=== PATIENT | male | born 1990 | race Caucasian/White ===

== ENCOUNTER 2016-08-30 22:00 | Emergency (ER) | payer SELFPAY ==
[2016-08-31] MEDS ORDERED: Acetaminophen TAB* 325 MG PO ONE (00:05)
--- NOTE | 2016-08-31 00:29 | ED ---
Influenza-Like Illness - HPI Summary HPI Summary: Patient presents with 3 days of congestion, cough and sore throat. Four hours ago he feels like he started feeling worse with subjective fever and chills. He denies SOB, CP, neck stiffness, N/V/ or BELTRÁN. He is eating and drinking. He has had one episode of diarrhea. He says he has been "working a lot" and one of his friends has pharyngitis. He does not have a regular doctor. - History of Current Complaint Chief Complaint: EDFluSymptoms Time Seen by Provider: 08/30/16 23:55 Hx Obtained From: Patient Onset/Duration: Gradual Onset Severity: Moderate Associated Signs & Symptoms: Cough, Sore Throat, Nasal Congestion, Diarrhea Related Hx: Possible Flu/Infectious Exposure - Allergy/Home Medications Allergies/Adverse Reactions: Allergies Allergy/AdvReac Type Severity Reaction Status Date / Time No Known Allergies Allergy Verified 11/21/15 11:28 PMH/Surg Hx/FS Hx/Imm Hx Respiratory History: Reports: Other Respiratory Problems/Disorders - SLEEP APNEA Musculoskeletal History: Reports: Hx Tendonitis Infectious Disease History: No Infectious Disease History: Denies: Traveled Outside the [place] in Last 30 Days - Family History Known Family History: Positive: None - Social History Occupation: Employed Full-time Lives: With Family Alcohol Use: Rare Substance Use Type: Reports: Marijuana Substance Use Comment - Amount & Last Used: weekly Hx Tobacco Use: Yes Smoking Status (MU): Light Every Day Tobacco Smoker Cessation Counseling: Patient Advised to Stop Review of Systems Positive: Chills, Fatigue. Negative: Fever Negative: Photophobia Positive: Sore Throat, Nasal Discharge. Negative: Ear Ache Negative: Chest Pain Positive: Cough. Negative: Shortness Of Breath Positive: Diarrhea - x 1. Negative: Abdominal Pain, Vomiting, Nausea Positive: no symptoms reported Negative: Myalgia Negative: Headache All Other Systems Reviewed And Are Negative: Yes Physical Exam Triage Information Reviewed: Yes Vital Signs On Initial Exam: Initial Vitals Temp Pulse Resp BP Pulse Ox 99.3 F 82 18 144/58 98 08/30/16 22:19 08/30/16 22:19 08/30/16 22:19 08/30/16 22:19 08/30/16 22:19 Vital Signs Reviewed: Yes Appearance: Positive: Well-Appearing, No Pain Distress, Obese Skin: Positive: Warm, Skin Color Reflects Adequate Perfusion, Dry, Soft Head/Face: Positive: Normal Head/Face Inspection Eyes: Positive: EOMI, KARY, Conjunctiva Clear ENT: Positive: Hearing grossly normal, Pharyngeal erythema, Nasal congestion, TMs normal. Negative: Tonsillar swelling, Tonsillar exudate, Trismus, Muffled/ hoarse voice Neck: Positive: Supple, Nontender, No Lymphadenopathy Respiratory/Lung Sounds: Positive: Clear to Auscultation, Breath Sounds Present Cardiovascular: Positive: RRR Abdomen Description: Positive: Nontender, Soft Musculoskeletal: Negative: Edema Left, Edema Right Neurological: Positive: Sensory/Motor Intact, Alert, Oriented to Person Place, Time, NV Bundle Intact Distally, Normal Gait Psychiatric: Positive: Affect/Mood Appropriate AVPU Assessment: Alert Diagnostics - Vital Signs Vital Signs Temp Pulse Resp BP Pulse Ox 08/30/16 22:19 99.3 F 82 18 144/58 98 - Laboratory Lab Results: Lab Results 08/30/16 08/30/16 Range/Units 22:19 23:17 Influenza A (Rapid) Negative (Negative) Influenza B (Rapid) Negative (Negative) Group A Strep Rapid Negative (Negative) Lab Statement: Any lab studies that have been ordered have been reviewed, and results considered in the medical decision making process. - Radiology No standard instances Xray Interpretation: No Acute Changes Radiology Interpretation Completed By: Radiologist Flu Symptom Course/Dx - Diagnoses Differential Diagnosis/HQI/PQRI: Positive: Bronchitis, Influenza, Pneumonia, Upper Respiratory Infection Provider Diagnoses: Pharyngitis Discharge - Discharge Plan Condition: Stable Disposition: HOME Patient Education Materials: Pharyngitis (ED) Referrals: No Primary Care Phys,NOPCP [Primary Care Provider] - [facility] [place] [facility] [Outside] Additional Instructions: Please use over the counter medication, such as ibuprofen, Tylenol, Cephaclor throat spray and cough drops, to help reduce your symptoms. Perform warm saltwater gargles as well. Call the number provided to establish care with a regular provider for follow-up care. Return to the emergency department if symptoms worsen.
[2016-08-31 00:45] VITALS: BP 141/65
--- NOTE | 2016-08-31 08:07 | RAD ---
Indication: Shortness of breath, cough and fatigue. 2 views the chest including dual energy PA views demonstrates hyperinflated lung salguero. No pleural fluid, pneumonia or pneumothorax is noted. IMPRESSION: HYPERINFLATED LUNG SALGUERO WITHOUT EVIDENCE OF ACTIVE CARDIOPULMONARY DISEASE.
== END 2016-08-31 00:42 | disposition home or self-care (01) ==
LOC: ED 22:00
DX: J02.9 Acute pharyngitis, unspecified (principal); R09.81 Nasal congestion; R68.83 Chills (without fever); R05 Cough; R19.7 Diarrhea, unspecified; F17.210 Nicotine dependence, cigarettes, uncomplicated
CPT/HCPCS: 71020; 87502; 87651; 99282; A9270-GY

== ENCOUNTER 2016-10-29 14:17 | Emergency (ER) | payer SELFPAY ==
[2016-10-29] MEDS ORDERED: Cyclobenzaprine TAB* 10 MG PO ONE (15:21)
[2016-10-29] MEDS ORDERED: Ketorolac INJ* 60 MG/2 ML VIAL IM ONE (15:21)
--- NOTE | 2016-10-29 15:22 | ED ---
Upper Extremity Pain - HPI Summary HPI Summary: 26 male presents with complaints of left shoulder/scapula pain that radiates under left arm and up into left pectoris muscle that has been going on for the past 2-4 days. Patient states he had similar pain on the right side a few days ago but today when he woke up it moved to the left side. Denies recent trauma or injury, however does states about 1 week ago he fell while at work and landed on his right side, all twisted and "Fell wrong". Patient states he was just at work before coming to ED and was lifting and stretching which was causing his pain to hurt more. Has not taken any medications for this pain. Denies difficulty breathing or shortness of breath. Denies chest pain, numbness/ tingling and vomiting. Has been eating and drinking without issue. Admits to some nausea however. Also states sometimes when he takes a deep breath it worsens the pain. Describes pain as sharp, intermittently with stretching. No PMHx. Denies fever/chills. Admits to stuffy nose and intermittent non productive cough. - History of Current Complaint Chief Complaint: EDChestWallPain Stated Complaint: BACK/SHOULDER PAIN Time Seen by Provider: 10/29/16 14:36 Hx Obtained From: Patient Mechanism Of Injury: Fall From A Standing Position - 1 week ago, Unknown Onset/Duration: Started Hours Ago, Still Present Timing: Intermittent - with certain movements Severity Initially: Moderate Severity Currently: Moderate Pain Location: Shoulder - left back/shoulder and pectoris musle, front chest Character: Sharp, Aching Aggravating Factor(s): Movement - stretching Alleviating Factor(s): Rest Associated Signs & Symptoms: Positive: Negative, Swelling - subjective, right chest swelling, Back Pain, Nausea. Negative: Redness, Bruising, Weakness, Numbness/Tingling, Chest Pain, SOB, Vomiting Related History: Dominant Hand Right - Allergies/Home Medications Allergies/Adverse Reactions: Allergies Allergy/AdvReac Type Severity Reaction Status Date / Time No Known Allergies Allergy Verified 11/21/15 11:28 PMH/Surg Hx/FS Hx/Imm Hx Endocrine/Hematology History: Denies: Hx Diabetes Cardiovascular History: Denies: Hx Hypertension Respiratory History: Reports: Other Respiratory Problems/Disorders - SLEEP APNEA Denies: Hx Asthma Musculoskeletal History: Reports: Hx Tendonitis - Surgical History Surgery Procedure, Year, and Place: none - Immunization History Immunizations Up to Date: Yes Infectious Disease History: No Infectious Disease History: Denies: Traveled Outside the [place] in Last 30 Days - Family History Known Family History: Positive: None - Social History Alcohol Use: Rare Substance Use Type: Reports: Marijuana Substance Use Comment - Amount & Last Used: weekly Hx Tobacco Use: Yes Smoking Status (MU): Light Every Day Tobacco Smoker Review of Systems Constitutional: Negative Cardiovascular: Negative Respiratory: Negative Positive: Nausea Genitourinary: Negative Positive: Arthralgia, Myalgia - left shoulder/chest Skin: Negative Neurological: Negative All Other Systems Reviewed And Are Negative: Yes Physical Exam Triage Information Reviewed: Yes Vital Signs On Initial Exam: Initial Vitals Temp Pulse Resp BP Pulse Ox 97.8 F 66 20 133/63 99 10/29/16 14:19 10/29/16 14:19 10/29/16 14:19 10/29/16 14:19 10/29/16 14:19 Vital Signs Reviewed: Yes Appearance: Positive: Well-Appearing - sleeping upon entry into room, No Pain Distress, Well-Nourished, Obese Skin: Positive: Warm, Skin Color Reflects Adequate Perfusion, Dry, Other - no crepitus, step off or ecchymosis. no edema noted anywhere. no obvious deformity. no reproducible tenderness. Negative: Cold, Cyanosis @ Head/Face: Positive: Normal Head/Face Inspection Eyes: Positive: Normal, Conjunctiva Clear ENT: Positive: Normal ENT inspection, Hearing grossly normal Neck: Positive: Supple, Nontender, No Lymphadenopathy Respiratory/Lung Sounds: Positive: Clear to Auscultation, Breath Sounds Present. Negative: Rales, Rhonchi, Stridor, Wheezes Cardiovascular: Positive: Normal, RRR, Pulses are Symmetrical in both Upper and Lower Extremities - 2+ all. Negative: Murmur, Rub Abdomen Description: Positive: Nontender, No Organomegaly, Soft. Negative: Bruit, CVA Tenderness (R), CVA Tenderness (L), Distended, Guarding, Pulsatile Mass Bowel Sounds: Positive: Present Musculoskeletal: Positive: Normal, Strength/ROM Intact, Pain @ - mild tenderness left lateral thoracic paraspinal mucles and along left scapula. no reproducible sharp pain. Negative: Limited @, Interruption @, Edema Left, Edema Right Neurological: Positive: Normal, Sensory/Motor Intact - sensation intact and normal, Alert, Oriented to Person Place, Time, CN Intact II-III, Reflexes Intact , NV Bundle Intact Distally, Normal Gait Psychiatric: Positive: Normal Diagnostics - Vital Signs Vital Signs Temp Pulse Resp BP Pulse Ox 10/29/16 14:23 97.7 F 69 17 133/63 99 10/29/16 14:19 97.8 F 66 20 133/63 99 - Laboratory Lab Statement: Any lab studies that have been ordered have been reviewed, and results considered in the medical decision making process. Re-Evaluation - Re-Evaluation First Eval Re-Evaluation Time: 16:20 Change: Improved Comment: patient had significant relief of symptoms after medication was administered. states he feels better and would like to go home. Course/Dx - Course Course Of Treatment: no x-rays obtained due to patient not having any significant trauma or injury and no concern for fracture or disclocation at this time due to GEE and PE findings. No cardiac related chest pain or respiratory complaints. Normal vitals. Appears to be muscular due to PE findings and HPI. Given toradol and muscle relaxer while in ED. Had relief. Patient was encouraged to continue ibuprofen or aleve while at home along with rest, head and ice. Follow up with pcp. Educated on worsening signs and symptoms to watch out for. No concern for any emergent etiology at this time. - Diagnoses Differential Diagnosis/HQI/PQRI: Positive: Arthritis, Contusion, Strain, Sprain Provider Diagnoses: Muscle strain of left scapular region Discharge - Discharge Plan Condition: Stable Disposition: HOME Patient Education Materials: Muscle Strain (ED) Forms: *Work Release Referrals: No Primary Care Phys,NOPCP [Primary Care Provider] - [facility] [place] [facility] [Outside] Additional Instructions: Take Ibuprofen(Motrin) daily for the next 3-5 days or until symptoms persist. Take with food. You may take up to 600mg every 6 hours. Rest and apply heat to the area causing pain. Avoid lifting and movements that cause the pain to worsen. Follow up with PCP. If symptoms worsen or new symptoms develop please return.
[2016-10-29 16:38] VITALS: BP 131/68
== END 2016-10-29 16:37 | disposition home or self-care (01) ==
LOC: ED 14:17
DX: R11.0 Nausea (principal); R07.9 Chest pain, unspecified; F17.210 Nicotine dependence, cigarettes, uncomplicated; S09.11XA Strain of muscle and tendon of head, initial encounter; X50.9XXA Other and unspecified overexertion or strenuous movements or postures, initial encounter; Y93.9 Activity, unspecified; Y92.9 Unspecified place or not applicable; Y99.9 Unspecified external cause status
CPT/HCPCS: 96372; 99282; A9270-GY; J1885

== ENCOUNTER 2017-04-11 14:40 | Emergency (ER) | payer SELFPAY ==
--- NOTE | 2017-04-11 17:21 | RAD ---
Indication: LEFT shoulder pain; injury; felt tearing. Comparison: August 31, 2016 chest radiograph. Technique: Internal rotation AP, external rotation Grashey, scapular Y, axillary views LEFT shoulder Report: Normal acromioclavicular and glenohumeral joint alignment. Negative for fracture. No significant arthropathic change evident. Negative for stigmata of calcific tendinopathy. Unremarkable soft tissue contours. IMPRESSION: No traumatic injury evident. Negative exam.
[2017-04-11] MEDS ORDERED: Ibuprofen TAB* 400 MG PO ONE (17:26)
--- NOTE | 2017-04-11 18:50 | ED ---
Upper Extremity Pain - HPI Summary HPI Summary: Pt here w/ Rt shoulder pain x 2 days. Injured while sparring with a friend last night. Arm was aggressively blocked as he tried to jab - pushed upward and outward. Maxwell like internal tearing and had pain and swelling after. Tried tylenol w/ some relief but arm hurts to support on his own - worse w/ flexion/ abduction. Denies numbness, tingling, weakness. No other injuries as a result of this incident. - History of Current Complaint Chief Complaint: EDShoulderClavicleInj Stated Complaint: LT SHOULDER INJURY Time Seen by Provider: 04/11/17 17:38 Hx Obtained From: Patient - Allergies/Home Medications Allergies/Adverse Reactions: Allergies Allergy/AdvReac Type Severity Reaction Status Date / Time No Known Allergies Allergy Verified 11/21/15 11:28 PMH/Surg Hx/FS Hx/Imm Hx Previously Healthy: Yes Endocrine/Hematology History: Denies: Hx Diabetes Cardiovascular History: Denies: Hx Hypertension Respiratory History: Reports: Other Respiratory Problems/Disorders - SLEEP APNEA Denies: Hx Asthma Musculoskeletal History: Reports: Hx Tendonitis - Rt knee - uses marijuana to treat pain - Surgical History Surgery Procedure, Year, and Place: none Infectious Disease History: No Infectious Disease History: Denies: Traveled Outside the [place] in Last 30 Days - Family History Known Family History: Positive: None - Social History Occupation: Employed Full-time Lives: With Family Alcohol Use: Rare Substance Use Type: Reports: Marijuana - uses to treat tendonitis pain Substance Use Comment - Amount & Last Used: weekly Hx Tobacco Use: Yes Smoking Status (MU): Current Every Day Smoker Amount Used/How Often: 1PPD Review of Systems Constitutional: Negative Eyes: Negative Negative: Photophobia, Blurred Vision, Diplopia Cardiovascular: Negative Negative: Chest Pain Respiratory: Negative Negative: Shortness Of Breath Gastrointestinal: Negative Negative: Abdominal Pain, Vomiting, Diarrhea, Nausea Positive: no symptoms reported Positive: Arthralgia, Myalgia, Decreased ROM Skin: Negative Neurological: Negative Psychological: Normal All Other Systems Reviewed And Are Negative: Yes Physical Exam Triage Information Reviewed: Yes Vital Signs On Initial Exam: Initial Vitals Temp Pulse Resp BP Pulse Ox 98.8 F 52 17 148/77 98 04/11/17 15:02 04/11/17 15:02 04/11/17 15:02 04/11/17 15:02 04/11/17 15:02 Vital Signs Reviewed: Yes Appearance: Positive: Well-Appearing, No Pain Distress - at rest, Well-Nourished Skin: Positive: Warm, Dry - no erythema, no ecchymosis over affected area but soft tissue of scapula is edematous compared to Rt - pt reports it feels "squishy" w/ palpation Head/Face: Positive: Normal Head/Face Inspection Eyes: Positive: EOMI Neck: Positive: Supple, Nontender Respiratory/Lung Sounds: Positive: Breath Sounds Present Cardiovascular: Positive: Pulses are Symmetrical in both Upper and Lower Extremities - no edema of UE Musculoskeletal: Positive: Limited @ - Lt shoulder pain and limited ROM w/ flexion and abduction at around 90 degrees - can move elbow, wrist and phalalnges well; pain Lt shoulder better in sling and with passive ROM Neurological: Positive: Normal, Sensory/Motor Intact, Alert, Oriented to Person Place, Time, CN Intact II-III Psychiatric: Positive: Normal - Anthony Coma Scale Coma Scale Total: 15 Diagnostics - Vital Signs Vital Signs Temp Pulse Resp BP Pulse Ox 04/11/17 15:02 98.8 F 52 17 148/77 98 - Laboratory Diagnostic Studies Comment: Lt shoulder XR report reviewed - no fx, no dislocation Lab Statement: Any lab studies that have been ordered have been reviewed, and results considered in the medical decision making process. Course/Dx - Course Course Of Treatment: Suspect rotator cuff injury. Advised RICE and sling - NSAID 's - f/u w/ ortho. Danger s/sx reviewed as well. Pt agrees w/ plan. - Diagnoses Provider Diagnoses: Left anterior shoulder pain Discharge - Discharge Plan Condition: Stable Disposition: HOME Patient Education Materials: Shoulder Pain (ED) Referrals: Wolfgang Gil MD [Medical Doctor] - Additional Instructions: It is suspected that you have a rotator cuff injury. Continue to use sling but do remove arm a few times a day to move elbow and gentle move shoulder to prevent stiffness, swelling You may ice and take ibuprofen with food Follow-up with orthopedics in 1-2 weeks if shoulder pain persists - call tomorrow to schedule an appointment *If you develop numbness, weakness, swelling, coolness of extremity, return to ED
[2017-04-11 19:19] VITALS: BP 130/67
== END 2017-04-11 19:17 | disposition home or self-care (01) ==
LOC: ED 14:40
DX: M25.512 Pain in left shoulder (principal)
CPT/HCPCS: 99282; A9270-GY

== ENCOUNTER 2021-06-17 22:58 | Inpatient (IN) ==
[2021-06-17 23:57] LABS: ABS Basophils 0.1 10^3/ul (0-0.2); ABS Eosinophils 0.3 10^3/ul (0-0.6); ABS Lymphocytes 2.6 10^3/ul (1.0-4.8); ABS Neutrophils 6.9 10^3/ul (1.5-7.7); Eosinophil % 3.1 %; Hematocrit 44 % (42-52); Hemoglobin 14.9 g/dL (14.0-18.0); Lymphocyte % 23.5 %; Mean Corpuscular HGB Conc 34 g/dL (31-36); Mean Corpuscular Hemoglobin 30 pg (27-31); Mean Corpuscular Volume 87 fL (80-94); Nucleated Red Blood Cells % 0.1; Platelet Count 245 10^3/uL (150-450); Red Blood Count 5.03 10^6 /uL (4.18-5.48); Red Cell Distribution Width 14 % (10-15); White Blood Count 10.9 10^3/uL (3.5-10.8)
[2021-06-18 00:12] LABS: ALT 17 U/L (7-52); AST 21 U/L (13-39); Albumin 4.5 g/dL (3.2-5.2); Albumin/Globulin Ratio 1.6 (1-3); Alkaline Phosphatase 78 U/L (35-149); Anion Gap 9 mmol/L (2-11); Blood Urea Nitrogen 11 mg/dL (6-24); CO2 Carbon Dioxide 23 mmol/L (22-32); Calcium 9.2 mg/dL (8.6-10.3); Chloride 104 mmol/L (101-111); Globulin 2.9 g/dL (2-4); Glucose 93 mg/dL (70-100); Potassium 3.8 mmol/L (3.5-5.0); Sodium 136 mmol/L (135-145); Total Protein 7.4 g/dL (6.4-8.9); eGFR CKD-EPI 119.4 (>60)
[2021-06-18 00:27] LABS: Acetaminophen < 15 mcg/mL; Alcohol, S < 13 mg/dL (<13); Salicylate < 2.50 mg/dL (<30)
[2021-06-18 00:42] LABS: TSH Ultra Thyroid Stim Horm 4.27 mcIU/mL (0.34-5.60)
[2021-06-18 01:32] LABS: Urine Benzodiazepine Screen None Detected (None Detect); Urine Cannabinoids Screen Presumptive Positive (None Detect); Urine Opiates Screen None Detected (None Detect)
[2021-06-18 02:06] LABS: Urine Appearance Clear; Urine Bilirubin Negative (Negative); Urine Blood Negative (Negative); Urine Color Yellow; Urine Glucose Negative (Negative); Urine Ketones Negative (Negative); Urine Nitrite Negative (Negative); Urine Protein Negative (Negative); Urine Urobilinogen Negative (Negative); Urine pH 5 (5-9)
[2021-06-18] MEDS: Nicotine PATCH 21 MG/24 HR PATCH TRANSDERM ONE (09:43)
[2021-06-18] MEDS ORDERED: Lorazepam PYXIS KEY PRN (13:52)
[2021-06-18] MEDS ORDERED: LORazepam 2 mg VIAL 1 ml IM ONE (13:52)
[2021-06-18] MEDS ORDERED: diPHENhydraMINE IV 50 MG/ML 1 ml VIAL (BENADRYL) IV ONE (13:52)
[2021-06-18] MEDS ORDERED: diPHENhydraMINE IV 50 MG/ML 1 ml VIAL (BENADRYL) IM ONE (13:52)
[2021-06-18] MEDS ORDERED: Haloperidol 5 mg/ml SDV IV/IM 5 MG/ML AMP IM ONE (13:53)
[2021-06-18] MEDS ORDERED: Al Hydrox/Mg Hydrox/Simet LIQ 30 ML UDC PO PRN (14:15)
[2021-06-18] MEDS: Nicotine GUM 4MG FRUIT FLAVOR PO PRN (14:29)
[2021-06-19] MEDS ORDERED: Nicotine PATCH 21 MG/24 HR PATCH ONE (12:28)
[2021-06-19] MEDS: Nicotine GUM 4MG FRUIT FLAVOR PO PRN ×3 (12:37→20:59)
[2021-06-19] MEDS: Nicotine PATCH 21 MG/24 HR PATCH TRANSDERM ONE (12:38)
[2021-06-19] MEDS: Nicotine PATCH 21 MG/24 HR PATCH TRANSDERM SCH (12:44)
[2021-06-20] MEDS: Nicotine GUM 4MG FRUIT FLAVOR PO PRN ×4 (09:53→22:33)
[2021-06-20] MEDS: Nicotine PATCH 21 MG/24 HR PATCH TRANSDERM SCH (09:57)
[2021-06-21 08:05] VITALS: BP 183/86
[2021-06-21] MEDS: Nicotine GUM 4MG FRUIT FLAVOR PO PRN ×2 (08:28→12:51)
[2021-06-21] MEDS: Nicotine PATCH 21 MG/24 HR PATCH TRANSDERM SCH (08:29)
== END 2021-06-21 15:06 | disposition home or self-care (01) | DRG 754 ==
LOC: ED 22:58 → BSU 06-18 18:42
PROVIDERS: ADMIT Psychiatry & Neurology Psychiatry; ATTEND Psychiatry & Neurology Psychiatry